=== PATIENT | female | born 1970 | race African-American/Black ===

== ENCOUNTER 2017-05-16 15:50 | Emergency (ER) | payer OTHER ==
[~2017-05-16] VITALS: Ht 157.5 cm; Wt 82.0 kg
[~2017-05-16 15:50] MED LIST: BENADRYL; HYDR-3927; NORVASC; P20 PO; POTASSIUM
[2017-05-16 15:51] VITALS: BP 125/69
[2017-05-16] MEDS ORDERED: LEVOFLOXACIN 250MG TABLET PO ONE (19:00)
== END 2017-05-16 19:15 | disposition home or self-care (01) ==
LOC: ER 16:03
DX: H60.8X3 Other otitis externa, bilateral (principal); H61.003 Unspecified perichondritis of external ear, bilateral; J45.909 Unspecified asthma, uncomplicated; I10 Essential (primary) hypertension; M32.9 Systemic lupus erythematosus, unspecified; R04.0 Epistaxis; Z98.890 Other specified postprocedural states
CPT/HCPCS: 99283

== ENCOUNTER 2017-10-13 19:11 | Emergency (ER) | payer OTHER ==
[~2017-10-13] VITALS: Ht 157.5 cm; Wt 78.0 kg
[2017-10-13] MEDS ORDERED: MORPHINE SULFATE 10 MG/ML CPJ IM ONE (20:00)
[2017-10-13] MEDS ORDERED: ONDANSETRON 4MG ODT PO ONE (20:00)
[2017-10-13] MEDS ORDERED: KETOROLAC 60MG/2ML VIAL IM ONE (23:30)
[2017-10-14 00:05] VITALS: BP 136/87
== END 2017-10-13 23:59 | disposition home or self-care (01) ==
LOC: ER 19:11
DX: M54.2 Cervicalgia (principal); F17.200 Nicotine dependence, unspecified, uncomplicated; M32.9 Systemic lupus erythematosus, unspecified; M48.061 Spinal stenosis, lumbar region without neurogenic claudication; M54.9 Dorsalgia, unspecified; J45.909 Unspecified asthma, uncomplicated; I10 Essential (primary) hypertension; Z79.899 Other long term (current) drug therapy; W01.0XXA Fall on same level from slipping, tripping and stumbling without subsequent striking against object, initial encounter; Y93.89 Activity, other specified; Y92.89 Other specified places as the place of occurrence of the external cause; Y99.8 Other external cause status
CPT/HCPCS: 70450; 72125; 72128; 72131; 96372; 99284; J1885; J2270; Q0162

== ENCOUNTER 2018-03-25 19:52 | Emergency (ER) | payer OTHER ==
[~2018-03-25] VITALS: Ht 157.5 cm; Wt 79.0 kg
[2018-03-25] MEDS ORDERED: KETOROLAC 30MG/ML VIAL IV STA (22:17)
[2018-03-25] MEDS ORDERED: SODIUM CHLORIDE 0.9% 1,000 ML IV ONE (22:17)
[2018-03-25] MEDS ORDERED: MORPHINE SULFATE 4 MG/ML CPJ (NOT FOR IM USE) IV ONE (22:45)
[2018-03-25 22:46] LABS: CLARITY URINE CLEAR (CLEAR); COLOR URINE YELLOW (YELLOW); KETONES URINE NEGATIVE (NEGATIVE); LEUKOCYTE ESTERASE URINE 1+ (NEGATIVE); NITRITE URINE NEGATIVE (NEGATIVE); OCCULT BLOOD URINE NEGATIVE (NEGATIVE); PH URINE 6.5 (4.5-8.0); PROTEIN URINE NEGATIVE (NEGATIVE); SPECIFIC GRAVITY URINE 1.022 (1.005-1.030)
[2018-03-25 22:59] LABS: BASOPHILS % 0.8 % (0.0-2.0); EOSINOPHILS % 1.6 % (0.0-5.0); HEMATOCRIT. 36.2 % (36.0-48.0); HEMOGLOBIN. 12.2 g/dL (12.0-16.0); LYMPHOCYTES % 39.1 % (20.0-50.0); MEAN CORPUSCULAR VOLUME 97.8 fL (81.0-99.0); MEAN PLATELET VOLUME 8.2 fl (7.4-10.4); MONOCYTES % 6.8 % (2.0-8.0); NEUTROPHILS % 51.7 % (40.0-76.0); PLATELET 362 x1000/uL (130-400); RED CELL DISTRIBUTION WIDTH 13.9 % (11.6-14.6)
[2018-03-25 23:03] LABS: CHLORIDE 107 mEq/L (98-107); PROTHROMBIN TIME 9.9 sec (9.1-11.1)
[2018-03-25] MEDS ORDERED: MORPHINE SULFATE 2 MG/ML CPJ (NOT FOR IM USE) IV NR (23:15)
[2018-03-26 00:48] VITALS: BP 100/60
== END 2018-03-26 00:49 | disposition home or self-care (01) ==
LOC: ER 23:32
DX: R10.9 Unspecified abdominal pain (principal); N39.0 Urinary tract infection, site not specified; M79.7 Fibromyalgia; M32.9 Systemic lupus erythematosus, unspecified
CPT/HCPCS: 36415; 71045; 80053; 81003; 81025; 83690; 85025; 85610; 93005; 96374; 99284; J2270; J7030; J1885

== ENCOUNTER 2018-05-30 11:50 | Emergency (ER) | payer OTHER ==
[~2018-05-30] VITALS: Ht 175.3 cm; Wt 79.0 kg
[2018-05-30] MEDS ORDERED: KETOROLAC 30MG/ML VIAL IV STA (12:23)
[2018-05-30] MEDS ORDERED: SODIUM CHLORIDE 0.9% 1,000 ML IV ONE ×2 (12:23→15:45)
[2018-05-30 13:54] LABS: CHLORIDE 104 mEq/L (98-107)
[2018-05-30 15:19] LABS: BASOPHILS % 0.2 % (0.0-2.0); EOSINOPHILS % 0.1 % (0.0-5.0); HEMOGLOBIN. 11.2 g/dL (12.0-16.0); LYMPHOCYTES % 10.3 % (20.0-50.0); MEAN CORPUSCULAR HEMOGLOBIN 32.8 pg (28.0-32.0); MEAN CORPUSCULAR VOLUME 96.9 fL (81.0-99.0); MEAN PLATELET VOLUME 7.5 fl (7.4-10.4); MONOCYTES % 6.6 % (2.0-8.0); NEUTROPHILS % 82.8 % (40.0-76.0); PLATELET 332 x1000/uL (130-400); RED CELL DISTRIBUTION WIDTH 13.9 % (11.6-14.6)
[2018-05-30 18:56] VITALS: BP 124/62
[2018-05-30] MEDS ORDERED: OXYCODONE HCL/ACETAMINOPHEN 5/325MG TABLET PO ONE (19:00)
== END 2018-05-30 15:22 | disposition home or self-care (01) ==
LOC: ER 11:50 → CANBEDREQ 05-31 01:29
DX: J06.9 Acute upper respiratory infection, unspecified (principal); D64.9 Anemia, unspecified; E87.2 Acidosis; F17.200 Nicotine dependence, unspecified, uncomplicated; Z98.890 Other specified postprocedural states; Z91.018 Allergy to other foods
CPT/HCPCS: 36415; 71045; 80053; 83605; 84145; 84484; 85025; 85610; 87804; 93005; 96374; 99284; J1885; J7030

== ENCOUNTER 2018-11-14 03:13 | Emergency (ER) | payer OTHER ==
[~2018-11-14] VITALS: Ht 172.7 cm; Wt 83.0 kg
[2018-11-14] MEDS: KETOROLAC 30MG/ML VIAL IV STA (03:32)
[2018-11-14] MEDS: HYDROCODONE/ACETAMINOPHEN 5/325MG TABLET PO STA (03:58)
[2018-11-14] MEDS: ONDANSETRON 4MG ODT PO STA (03:58)
[2018-11-14 04:04] LABS: BASOPHILS % 0.8 % (0.0-2.0); EOSINOPHILS % 1.4 % (0.0-5.0); HEMATOCRIT. 34.7 % (36.0-48.0); HEMOGLOBIN. 11.8 g/dL (12.0-16.0); MEAN CORPUSCULAR HEMOGLOBIN 33.2 pg (28.0-32.0); MEAN PLATELET VOLUME 7.7 fl (7.4-10.4); NEUTROPHILS % 78.8 % (40.0-76.0); PLATELET 359 x1000/uL (130-400); RED BLOOD CELL COUNT 3.54 mill/uL (4.2-5.4); RED CELL DISTRIBUTION WIDTH 14.6 % (11.6-14.6)
[2018-11-14 04:07] LABS: CHLORIDE 108 mEq/L (98-107)
[2018-11-14 04:12] LABS: ETHANOL BLOOD < 10 mg/dL
[2018-11-14] MEDS: KETOROLAC 60MG/2ML VIAL IM ONE (04:58)
[2018-11-14 05:33] VITALS: BP 138/88
== END 2018-11-14 05:33 | disposition home or self-care (01) ==
LOC: ER 03:13
DX: M79.18 Myalgia, other site (principal); M54.2 Cervicalgia; G89.29 Other chronic pain; Z98.890 Other specified postprocedural states
CPT/HCPCS: 36415; 80053; 80320; 83690; 85025; 96372; 99283; J1885; Q0162; G0480

== ENCOUNTER 2019-03-02 09:11 | Emergency (ER) | payer OTHER ==
[~2019-03-02] VITALS: Ht 160 cm; Wt 79.0 kg
[2019-03-02 09:17] VITALS: BP 161/92
[2019-03-02] MEDS ORDERED: KETOROLAC 30MG/ML VIAL IM ONE (09:45)
== END 2019-03-02 10:57 | disposition home or self-care (01) ==
LOC: ER 10:00
DX: M54.5 Low back pain (principal); I10 Essential (primary) hypertension; E78.00 Pure hypercholesterolemia, unspecified; J44.9 Chronic obstructive pulmonary disease, unspecified; Z98.890 Other specified postprocedural states; F17.210 Nicotine dependence, cigarettes, uncomplicated; Z86.73 Personal history of transient ischemic attack (TIA), and cerebral infarction without residual deficits; V49.9XXA Car occupant (driver) (passenger) injured in unspecified traffic accident, initial encounter; Y93.89 Activity, other specified; Y92.488 Other paved roadways as the place of occurrence of the external cause
CPT/HCPCS: 96372; 99283; J1885

== ENCOUNTER 2019-06-05 10:27 | Inpatient (IN) | payer OTHER ==
[~2019-06-05] VITALS: Ht 157.5 cm; Wt 79.8 kg
[2019-06-05] MEDS ORDERED: ONDANSETRON 4MG ODT PO ONE (15:00)
[2019-06-05] MEDS ORDERED: HYDROCODONE/ACETAMINOPHEN 10/325MG TABLET PO ONE (16:15)
[2019-06-05] MEDS ORDERED: DEXAMETHASONE 10 MG/ML VIAL IV ONE (19:00)
[2019-06-05 20:18] LABS: CHLORIDE 108 mEq/L (98-107)
[2019-06-05 20:34] LABS: BASOPHILS % 0.9 % (0.0-2.0); EOSINOPHILS % 2.2 % (0.0-5.0); HEMOGLOBIN. 13.6 g/dL (12.0-16.0); LYMPHOCYTES % 52.9 % (20.0-50.0); MEAN CORPUSCULAR HEMOGLOBIN 32.9 pg (28.0-32.0); MEAN CORPUSCULAR VOLUME 96.6 fL (81.0-99.0); MONOCYTES % 5.6 % (2.0-8.0); NEUTROPHILS % 38.4 % (40.0-76.0); PLATELET 372 x1000/uL (130-400); RED BLOOD CELL COUNT 4.14 mill/uL (4.2-5.4); RED CELL DISTRIBUTION WIDTH 14.4 % (11.6-14.6)
[2019-06-05] MEDS ORDERED: DIPHENHYDRAMINE 25MG CAPSULE PO ONE (20:45)
[2019-06-05 21:02] LABS: INR 0.9; PROTHROMBIN TIME 10.3 sec (9.6-11.0)
[2019-06-05] MEDS ORDERED: SIMETHICONE 80MG TABLET CHEW PO ONE (21:30)
[2019-06-05 22:45] VITALS: BP 101/72
[2019-06-05] MEDS ORDERED: ZOLP10TA2 MT (23:23)
[2019-06-05] MEDS ORDERED: LACT10SO7 MT (23:23)
[2019-06-05] MEDS ORDERED: GABA-531 MT (23:23)
[2019-06-05] MEDS ORDERED: NICO-645 TP (23:23)
[2019-06-05] MEDS ORDERED: AMLO10TA4 MT (23:23)
[2019-06-06] VITALS: BP 101/72
[2019-06-06 04:00] VITALS: BP 103/61
[2019-06-06] MEDS: HYDROCODONE/ACETAMINOPHEN 10/325MG TABLET PO PRN ×2 (05:29→11:37)
[2019-06-06] MEDS: NICOTINE 14MG PATCH TD SCH (07:15)
[2019-06-06 08:00] VITALS: BP 129/80
[2019-06-06] MEDS: AMLODIPINE 10MG TABLET PO SCH (08:35)
[2019-06-06] MEDS: GABAPENTIN 300MG CAPSULE PO SCH ×3 (08:35→17:00)
[2019-06-06] MEDS: LACTULOSE 20G/30ML UDC PO SCH (08:35)
[2019-06-06 12:00] VITALS: BP 129/72
[2019-06-06] MEDS ORDERED: MORPHINE SULFATE 2 MG/ML CPJ (NOT FOR IM USE) IV PRN (12:15)
[2019-06-06] MEDS ORDERED: NALOXONE HCL 0.4 MG/ML 1ML VIAL IV PRN (15:30)
[2019-06-06] MEDS ORDERED: OXYCODONE HCL/ACETAMINOPHEN 5/325MG TABLET PO PRN (15:30)
[2019-06-06 16:00] VITALS: BP 118/77
[2019-06-06] MEDS ORDERED: IPRATROPIUM/ALBUTEROL 0.5-3(2.5)MG/3ML NEB HHN PRN (16:30)
[2019-06-06] MEDS: DEXAMETHASONE 4MG/ML 1ML VIAL IV SCH (17:03)
[2019-06-06] MEDS: MONTELUKAST SODIUM 10MG TABLET PO SCH (17:03)
[2019-06-06] MEDS: MORPHINE SULFATE 4 MG/ML CPJ (NOT FOR IM USE) IV PRN ×3 (17:59→23:19)
[2019-06-06 20:00] VITALS: BP 119/71
[2019-06-06] MEDS: IPRATROPIUM/ALBUTEROL 0.5-3(2.5)MG/3ML NEB HHN SCH (21:28)
[2019-06-06 23:10] LABS: CLARITY URINE CLEAR (CLEAR); COLOR URINE YELLOW (YELLOW); KETONES URINE NEGATIVE (NEGATIVE); LEUKOCYTE ESTERASE URINE 3+ (NEGATIVE); NITRITE URINE NEGATIVE (NEGATIVE); OCCULT BLOOD URINE NEGATIVE (NEGATIVE); PH URINE 6.5 (4.5-8.0); PROTEIN URINE NEGATIVE (NEGATIVE); SPECIFIC GRAVITY URINE 1.016 (1.005-1.030); UROBILINOGEN URINE 0.2 E.U./dL (0.2-1.0)
[2019-06-07] VITALS: BP 108/64
[2019-06-07] MEDS ORDERED: DEXT 5%/LACTATED RINGERS 1,000 ML IV SCH
[2019-06-07 00:20] LABS: *AMPHETAMINES SCREEN URINE NEGATIVE (NEGATIVE); *BARBITURATES SCREEN URINE NEGATIVE (NEGATIVE); *BENZODIAZEPINES SCREEN URINE NEGATIVE (NEGATIVE); *COCAINE SCREEN URINE NEGATIVE (NEGATIVE); METHADONE URINE SCREEN NEGATIVE (NEGATIVE); OPIATES URINE SCREEN PRESUMTIVE POSITIVE (NEGATIVE)
[2019-06-07 00:21] LABS: CANNABINOID URINE SCREEN NEGATIVE (NEGATIVE); PHENCYCLIDINE URINE SCREEN NEGATIVE (NEGATIVE)
[2019-06-07] MEDS: IPRATROPIUM/ALBUTEROL 0.5-3(2.5)MG/3ML NEB HHN SCH ×4 (01:50→13:45)
[2019-06-07] MEDS: MORPHINE SULFATE 4 MG/ML CPJ (NOT FOR IM USE) IV PRN ×5 (02:33→21:10)
[2019-06-07 04:00] VITALS: BP 99/66
[2019-06-07] MEDS: DEXAMETHASONE 4MG/ML 1ML VIAL IV SCH ×4 (06:00→17:45)
[2019-06-07 08:00] VITALS: BP 105/63
[2019-06-07] MEDS: GABAPENTIN 300MG CAPSULE PO SCH ×3 (08:39→17:47)
[2019-06-07] MEDS: AMLODIPINE 10MG TABLET PO SCH (08:40)
[2019-06-07] MEDS: NICOTINE 14MG PATCH TD SCH (08:40)
[2019-06-07] MEDS: LACTULOSE 20G/30ML UDC PO SCH (08:42)
[2019-06-07] MEDS ORDERED: NICOTINE 14MG PATCH TD SCH (09:00)
[2019-06-07 12:00] VITALS: BP 136/81
[2019-06-07] MEDS ORDERED: POLYETHYLENE GLYCOL 3350 (17GM) 1 DOSE PACK PO SCH (14:30)
[2019-06-07] MEDS ORDERED: ZOLPIDEM TARTRATE 5MG TABLET PO PRN (14:30)
[2019-06-07 16:00] VITALS: BP 117/66
[2019-06-07] MEDS: MONTELUKAST SODIUM 10MG TABLET PO SCH (17:47)
[2019-06-07 20:00] VITALS: BP 106/66
[2019-06-08] VITALS (49 sets, daily range): BP systolic 87–229; BP diastolic 37–229
[2019-06-08] MEDS: MORPHINE SULFATE 4 MG/ML CPJ (NOT FOR IM USE) IV PRN ×6 (01:22→21:48)
[2019-06-08] MEDS: DEXAMETHASONE 4MG/ML 1ML VIAL IV SCH ×5 (06:00→23:47)
[2019-06-08] MEDS ORDERED: THROMBIN (BOVINE) 5000 UNITS/VIAL TOP ONE ×3 (06:31→08:27)
[2019-06-08] MEDS ORDERED: LIDOCAINE HCL/EPINEPHRINE 1%-EPI 1:100,000 20 ML VIAL ONE ×2 (06:31→09:48)
[2019-06-08] MEDS ORDERED: BACITRACIN 50,000 UNITS/VIAL ONE ×2 (06:31→09:47)
[2019-06-08] MEDS ORDERED: BACITRACIN 15GM TUBE TOP ONE (06:31)
[2019-06-08] MEDS ORDERED: FENTANYL CITRATE/PF 50MCG/ML 2ML VIAL ONE ×2 (07:08→08:40)
[2019-06-08] MEDS ORDERED: NEOSTIGMINE METHYLSULFATE 1MG/ML 10 ML VIAL ONE (07:08)
[2019-06-08] MEDS ORDERED: ROCURONIUM BROMIDE 10MG/ML VIAL 5ML IV ONE (07:08)
[2019-06-08] MEDS ORDERED: MIDAZOLAM HCL 2 MG/2 ML VIAL ONE (07:09)
[2019-06-08] MEDS ORDERED: GLYCOPYRROLATE 0.2 MG/ML 2ML VIAL ONE (07:09)
[2019-06-08] MEDS ORDERED: PROPOFOL 200MG/20ML VIAL IV ONE ×2 (07:09→09:06)
[2019-06-08] MEDS ORDERED: ONDANSETRON HCL 4MG/2ML INJ ONE (07:14)
[2019-06-08] MEDS ORDERED: DEXAMETHASONE 4MG/ML 1ML VIAL ONE (07:14)
[2019-06-08] MEDS ORDERED: HYDROMORPHONE HCL/PF 2MG/ML (OR) ONE (07:45)
[2019-06-08] MEDS ORDERED: SEVOFLURANE 250 ML LIQUID INH ONE (08:22)
[2019-06-08] MEDS: NICOTINE 14MG PATCH TD SCH (09:00)
[2019-06-08] MEDS: CEFAZOLIN 1000MG PREMIX 50 ML IV SCH ×2 (10:00→17:46)
[2019-06-08] MEDS: NICARDIPINE 100 MG in SODIUM CHLORIDE 0.9% 60 ML IV PRN (12:26)
[2019-06-08] MEDS: DEXT 5%/LACTATED RINGERS 1,000 ML IV SCH ×2 (12:36→21:30)
[2019-06-08] MEDS: PROPOFOL 10MG/ML 100ML 100 ML IV PRN ×5 (12:52→23:49)
[2019-06-08 13:48] LABS: BG BASE EXCESS -5.7 mmol/L (-2.0-2.0); BG CARBOXYHEMOGLOBIN 0.3 % (0.5-1.5); BG DEOXYHEMOGLOBIN 1.5 % (0.0-5.0); BG FRACTION INSPIRED OXYGEN 50; BG HCO3 ACT 17.7 mmol/L (22.0-26.0); BG METHEMOGLOBIN 0.2 % (0.0-1.5); BG OXYGEN SATURATION 98.5 % (92.0-98.5); BG PCO2 28.5 mmHg (35.0-45.0); BG PH 7.411 (7.350-7.450); BG PO2 130.1 mmHg (75.0-100.0); BG SAMPLE SITE A-LINE; BG TIDAL VOLUME(mL) 500 mL; BG TOTAL HEMOGLOBIN 11.6 g/dL (12.0-18.0); BG VENT MODE VENT - A/C; BG VENT RATE 12 set
[2019-06-08] MEDS ORDERED: CEFAZOLIN SODIUM 1000MG/VIAL IV SCH (14:00)
[2019-06-08] MEDS: IPRATROPIUM/ALBUTEROL 0.5-3(2.5)MG/3ML NEB HHN SCH ×2 (14:58→19:53)
[2019-06-09] VITALS (101 sets, daily range): BP systolic 102–175; BP diastolic 55–173
[2019-06-09] MEDS: IPRATROPIUM/ALBUTEROL 0.5-3(2.5)MG/3ML NEB HHN SCH ×4 (02:07→19:54)
[2019-06-09] MEDS: MORPHINE SULFATE 4 MG/ML CPJ (NOT FOR IM USE) IV PRN ×8 (02:25→21:54)
[2019-06-09] MEDS: PROPOFOL 10MG/ML 100ML 100 ML IV PRN ×2 (02:58→06:32)
[2019-06-09] MEDS: CEFAZOLIN 1000MG PREMIX 50 ML IV SCH ×3 (03:04→17:40)
[2019-06-09] MEDS: NICARDIPINE 100 MG in SODIUM CHLORIDE 0.9% 60 ML IV PRN ×2 (03:29→13:03)
[2019-06-09 05:35] LABS: CHLORIDE 103 mEq/L (98-107)
[2019-06-09] MEDS: DEXAMETHASONE 4MG/ML 1ML VIAL IV SCH ×4 (06:25→23:55)
[2019-06-09 08:45] LABS: HEMATOCRIT. 37.9 % (36.0-48.0); HEMOGLOBIN. 12.9 g/dL (12.0-16.0); MEAN CORPUSCULAR HEMOGLOBIN 32.7 pg (28.0-32.0); MEAN PLATELET VOLUME 7.7 fl (7.4-10.4); PLATELET 332 x1000/uL (130-400); RED BLOOD CELL COUNT 3.94 mill/uL (4.2-5.4); RED CELL DISTRIBUTION WIDTH 14.1 % (11.6-14.6)
[2019-06-09] MEDS: DEXT 5%/LACTATED RINGERS 1,000 ML IV SCH ×2 (08:47→20:42)
[2019-06-09] MEDS: PANTOPRAZOLE SODIUM 40 MG/VIAL IV SCH (08:48)
[2019-06-09] MEDS: NICOTINE 14MG PATCH TD SCH (08:48)
[2019-06-09] MEDS ORDERED: RACEPINEPHRINE 2.25% 0.5ML NEB VIAL HHN PRN (10:30)
[2019-06-09 10:49] LABS: PLATELET ESTIMATE NORMAL
[2019-06-09] MEDS: OXYCODONE HCL/ACETAMINOPHEN 5/325MG TABLET PO PRN ×3 (14:57→23:56)
[2019-06-09 16:13] LABS: HCG SCREEN NEGATIVE
[2019-06-10] VITALS (75 sets, daily range): BP systolic 100–147; BP diastolic 40–98
[2019-06-10] MEDS: CEFAZOLIN 1000MG PREMIX 50 ML IV SCH ×2 (01:10→09:02)
[2019-06-10] MEDS: IPRATROPIUM/ALBUTEROL 0.5-3(2.5)MG/3ML NEB HHN SCH ×4 (01:36→20:54)
[2019-06-10] MEDS: MORPHINE SULFATE 4 MG/ML CPJ (NOT FOR IM USE) IV PRN ×10 (02:08→23:58)
[2019-06-10] MEDS: OXYCODONE HCL/ACETAMINOPHEN 5/325MG TABLET PO PRN ×5 (04:02→22:46)
[2019-06-10] MEDS: DEXAMETHASONE 4MG/ML 1ML VIAL IV SCH ×2 (05:08→12:19)
[2019-06-10] MEDS: DEXT 5%/LACTATED RINGERS 1,000 ML IV SCH ×2 (05:09→13:39)
[2019-06-10] MEDS: PANTOPRAZOLE SODIUM 40 MG/VIAL IV SCH (07:43)
[2019-06-10] MEDS: NICOTINE 14MG PATCH TD SCH (07:43)
[2019-06-10] MEDS: NICARDIPINE 100 MG in SODIUM CHLORIDE 0.9% 60 ML IV PRN (12:41)
[2019-06-10] MEDS: AMLODIPINE 5MG TABLET PO SCH (15:00)
[2019-06-10] MEDS ORDERED: CLONIDINE 0.1MG TABLET PO PRN (15:00)
[2019-06-11] VITALS (15 sets, daily range): BP systolic 94–135; BP diastolic 51–84
[2019-06-11] MEDS: IPRATROPIUM/ALBUTEROL 0.5-3(2.5)MG/3ML NEB HHN SCH ×4 (02:22→19:24)
[2019-06-11] MEDS: MORPHINE SULFATE 4 MG/ML CPJ (NOT FOR IM USE) IV PRN ×7 (03:10→21:41)
[2019-06-11 05:56] LABS: BASOPHILS % 0.3 % (0.0-2.0); HEMATOCRIT. 29.3 % (36.0-48.0); HEMOGLOBIN. 9.9 g/dL (12.0-16.0); MEAN CORPUSCULAR HEMOGLOBIN 32.8 pg (28.0-32.0); MEAN CORPUSCULAR VOLUME 97.2 fL (81.0-99.0); MEAN PLATELET VOLUME 8.9 fl (7.4-10.4); MONOCYTES % 8.4 % (2.0-8.0); NEUTROPHILS % 81.3 % (40.0-76.0); PLATELET 301 x1000/uL (130-400); RED BLOOD CELL COUNT 3.01 mill/uL (4.2-5.4); RED CELL DISTRIBUTION WIDTH 14.1 % (11.6-14.6)
[2019-06-11 06:01] LABS: CHLORIDE 106 mEq/L (98-107)
[2019-06-11 06:22] LABS: HCG SCREEN NEGATIVE
[2019-06-11] MEDS: PANTOPRAZOLE SODIUM 40 MG/VIAL IV SCH (08:30)
[2019-06-11] MEDS: NICOTINE 14MG PATCH TD SCH (08:30)
[2019-06-11] MEDS: AMLODIPINE 5MG TABLET PO SCH (08:33)
[2019-06-11] MEDS: OXYCODONE HCL/ACETAMINOPHEN 5/325MG TABLET PO PRN ×2 (09:47→17:06)
[2019-06-11 14:39] LABS: HEPATITIS B SURFACE ANTIGEN NEGATIVE
[2019-06-11] MEDS: PIPERACILLIN/TAZOBACTAM 3.375 G in DEXT 5% WATER 100 ML IV SCH (18:00)
[2019-06-11] MEDS: FAMOTIDINE 20MG/2ML VIAL IV SCH (21:40)
[2019-06-12] VITALS: BP 148/75
[2019-06-12] MEDS: PIPERACILLIN/TAZOBACTAM 3.375 G in DEXT 5% WATER 100 ML IV SCH ×5 (00:05→23:34)
[2019-06-12] MEDS: MORPHINE SULFATE 4 MG/ML CPJ (NOT FOR IM USE) IV PRN ×8 (00:24→23:18)
[2019-06-12] MEDS: IPRATROPIUM/ALBUTEROL 0.5-3(2.5)MG/3ML NEB HHN SCH ×3 (01:50→22:03)
[2019-06-12 04:00] VITALS: BP 142/77
[2019-06-12 06:55] LABS: BASOPHILS % 0.3 % (0.0-2.0); EOSINOPHILS % 0.6 % (0.0-5.0); HEMATOCRIT. 30.3 % (36.0-48.0); HEMOGLOBIN. 10.4 g/dL (12.0-16.0); LYMPHOCYTES % 29.1 % (20.0-50.0); MEAN CORPUSCULAR HEMOGLOBIN 32.9 pg (28.0-32.0); MEAN CORPUSCULAR VOLUME 95.7 fL (81.0-99.0); MEAN PLATELET VOLUME 8.1 fl (7.4-10.4); MONOCYTES % 13.6 % (2.0-8.0); NEUTROPHILS % 56.4 % (40.0-76.0); PLATELET 309 x1000/uL (130-400); RED BLOOD CELL COUNT 3.17 mill/uL (4.2-5.4); RED CELL DISTRIBUTION WIDTH 13.9 % (11.6-14.6)
[2019-06-12 07:02] LABS: CHLORIDE 104 mEq/L (98-107)
[2019-06-12] MEDS ORDERED: LIDOCAINE HCL 1% 20ML VIAL (Pyxis) INJ ONE (07:17)
[2019-06-12] MEDS ORDERED: SODIUM BICARBONATE 4% (2.4MEQ) 5ML VIAL IV ONE (07:17)
[2019-06-12 08:00] VITALS: BP 149/77
[2019-06-12] MEDS: AMLODIPINE 5MG TABLET PO SCH (10:29)
[2019-06-12] MEDS: NICOTINE 14MG PATCH TD SCH (10:29)
[2019-06-12] MEDS: POTASSIUM CHLORIDE 20MEQ/PACKET PO SCH (10:29)
[2019-06-12] MEDS: FAMOTIDINE 20MG/2ML VIAL IV SCH ×2 (10:29→20:07)
[2019-06-12 12:00] VITALS: BP 140/74
[2019-06-12 16:00] VITALS: BP 127/82
[2019-06-12] MEDS: OXYCODONE HCL/ACETAMINOPHEN 5/325MG TABLET PO PRN (17:59)
[2019-06-12 20:00] VITALS: BP 112/67
[2019-06-13] VITALS: BP 135/72
[2019-06-13] MEDS: IPRATROPIUM/ALBUTEROL 0.5-3(2.5)MG/3ML NEB HHN SCH ×2 (02:24→22:05)
[2019-06-13] MEDS: MORPHINE SULFATE 4 MG/ML CPJ (NOT FOR IM USE) IV PRN ×3 (02:27→08:24)
[2019-06-13 04:00] VITALS: BP 122/86
[2019-06-13] MEDS: PIPERACILLIN/TAZOBACTAM 3.375 G in DEXT 5% WATER 100 ML IV SCH ×3 (06:02→17:58)
[2019-06-13 06:41] LABS: BASOPHILS % 0.3 % (0.0-2.0); EOSINOPHILS % 0.8 % (0.0-5.0); HEMATOCRIT. 30.4 % (36.0-48.0); HEMOGLOBIN. 10.5 g/dL (12.0-16.0); LYMPHOCYTES % 25.5 % (20.0-50.0); MEAN CORPUSCULAR HEMOGLOBIN 32.9 pg (28.0-32.0); MEAN CORPUSCULAR VOLUME 95.5 fL (81.0-99.0); MEAN PLATELET VOLUME 7.5 fl (7.4-10.4); MONOCYTES % 10.1 % (2.0-8.0); NEUTROPHILS % 63.3 % (40.0-76.0); PLATELET 319 x1000/uL (130-400); RED BLOOD CELL COUNT 3.19 mill/uL (4.2-5.4); RED CELL DISTRIBUTION WIDTH 13.8 % (11.6-14.6)
[2019-06-13 07:35] LABS: CHLORIDE 101 mEq/L (98-107)
[2019-06-13 08:00] VITALS: BP 141/77
[2019-06-13] MEDS: FAMOTIDINE 20MG/2ML VIAL IV SCH ×2 (08:23→20:50)
[2019-06-13] MEDS: AMLODIPINE 5MG TABLET PO SCH (08:23)
[2019-06-13] MEDS: POTASSIUM CHLORIDE 20MEQ/PACKET PO SCH (08:23)
[2019-06-13] MEDS: NICOTINE 14MG PATCH TD SCH (08:24)
[2019-06-13] MEDS ORDERED: MORPHINE SULFATE 4 MG/ML CPJ (NOT FOR IM USE) IV PRN (09:00)
[2019-06-13] MEDS: OXYCODONE HCL/ACETAMINOPHEN 5/325MG TABLET PO PRN (10:26)
[2019-06-13 12:00] VITALS: BP 130/76
[2019-06-13] MEDS ORDERED: POTASSIUM CHLORIDE 20MEQ TABLET SR PO NR (14:00)
[2019-06-13 16:00] VITALS: BP 104/66
[2019-06-13] MEDS: MORPHINE SULFATE 2 MG/ML CPJ (NOT FOR IM USE) IV PRN (18:42)
[2019-06-13 20:00] VITALS: BP 102/62
[2019-06-14] VITALS: BP 115/77
[2019-06-14] MEDS: PIPERACILLIN/TAZOBACTAM 3.375 G in DEXT 5% WATER 100 ML IV SCH ×4 (00:40→17:56)
[2019-06-14] MEDS: OXYCODONE HCL/ACETAMINOPHEN 5/325MG TABLET PO PRN ×3 (00:40→19:05)
[2019-06-14] MEDS: MORPHINE SULFATE 2 MG/ML CPJ (NOT FOR IM USE) IV PRN ×3 (02:38→21:27)
[2019-06-14 04:00] VITALS: BP 99/66
[2019-06-14 08:00] VITALS: BP 106/64
[2019-06-14] MEDS: IPRATROPIUM/ALBUTEROL 0.5-3(2.5)MG/3ML NEB HHN SCH ×3 (08:16→21:05)
[2019-06-14] MEDS: FAMOTIDINE 20MG/2ML VIAL IV SCH (08:45)
[2019-06-14] MEDS: AMLODIPINE 5MG TABLET PO SCH (08:46)
[2019-06-14] MEDS: POTASSIUM CHLORIDE 20MEQ/PACKET PO SCH (08:54)
[2019-06-14] MEDS: NICOTINE 14MG PATCH TD SCH (08:54)
[2019-06-14 12:00] VITALS: BP 121/74
[2019-06-14] MEDS ORDERED: OXYC-515 MT (12:06)
[2019-06-14] MEDS ORDERED: MORPHINE SULFATE 2 MG/ML CPJ (NOT FOR IM USE) IV NR (14:00)
[2019-06-14 16:00] VITALS: BP 112/73
[2019-06-14 20:00] VITALS: BP 103/64
[2019-06-14] MEDS: FAMOTIDINE 20MG TABLET PO SCH (21:26)
[2019-06-15] VITALS: BP 155/100
[2019-06-15] MEDS: PIPERACILLIN/TAZOBACTAM 3.375 G in DEXT 5% WATER 100 ML IV SCH ×3 (00:25→12:00)
[2019-06-15] MEDS: OXYCODONE HCL/ACETAMINOPHEN 5/325MG TABLET PO PRN ×3 (01:16→14:50)
[2019-06-15] MEDS: IPRATROPIUM/ALBUTEROL 0.5-3(2.5)MG/3ML NEB HHN SCH ×2 (02:38→14:58)
[2019-06-15 04:00] VITALS: BP 130/70
[2019-06-15 08:00] VITALS: BP 116/73
[2019-06-15] MEDS: POTASSIUM CHLORIDE 20MEQ/PACKET PO SCH (08:02)
[2019-06-15] MEDS: NICOTINE 14MG PATCH TD SCH (08:02)
[2019-06-15] MEDS: FAMOTIDINE 20MG TABLET PO SCH (08:02)
[2019-06-15] MEDS: AMLODIPINE 5MG TABLET PO SCH (08:03)
[2019-06-15] MEDS: MORPHINE SULFATE 2 MG/ML CPJ (NOT FOR IM USE) IV PRN (10:25)
[2019-06-15 12:00] VITALS: BP 95/67
[2019-06-15 15:23] VITALS: BP 65/110
[2019-06-15 16:00] VITALS: BP 120/88
== END 2019-06-15 17:57 | disposition home health service (06) | DRG 321 ==
LOC: ER 10:40 → 6EST 21:22 → EDBEDREQ 21:26 → EDBEDREQTM 21:26 → ENRESERV 21:30 → MICUSO 06-08 12:13 → 6EST 06-11 11:45
PROVIDERS: ADMIT Internal Medicine; ATTEND Internal Medicine
PROC: 00NW0ZZ Release Cervical Spinal Cord, Open Approach (ICD-10-PCS; principal; 2019-06-08)
PROC: 0RG2071 Fusion of 2 or more Cervical Vertebral Joints with Autologous Tissue Substitute, Posterior Approach, Posterior Column, Open Approach (ICD-10-PCS; 2019-06-08)
PROC: 0RG4071 Fusion of Cervicothoracic Vertebral Joint with Autologous Tissue Substitute, Posterior Approach, Posterior Column, Open Approach (ICD-10-PCS; 2019-06-08)
PROC: 4A11X4G Monitoring of Peripheral Nervous Electrical Activity, Intraoperative, External Approach (ICD-10-PCS; 2019-06-08)
PROC: 0RB30ZZ Excision of Cervical Vertebral Disc, Open Approach (ICD-10-PCS; 2019-06-08)
PROC: 02HV33Z Insertion of Infusion Device into Superior Vena Cava, Percutaneous Approach (ICD-10-PCS; 2019-06-08)
PROC: B5181ZA Fluoroscopy of Superior Vena Cava using Low Osmolar Contrast, Guidance (ICD-10-PCS; 2019-06-08)
PROC: B548ZZA Ultrasonography of Superior Vena Cava, Guidance (ICD-10-PCS; 2019-06-08)
PROC: 0RP10AZ Removal of Interbody Fusion Device from Cervical Vertebral Joint, Open Approach (ICD-10-PCS; 2019-06-08)
PROC: 0RG20K0 Fusion of 2 or more Cervical Vertebral Joints with Nonautologous Tissue Substitute, Anterior Approach, Anterior Column, Open Approach (ICD-10-PCS; 2019-06-08)
DX: T84.226A Displacement of internal fixation device of vertebrae, initial encounter (principal); G82.50 Quadriplegia, unspecified; M50.01 Cervical disc disorder with myelopathy, high cervical region; M48.02 Spinal stenosis, cervical region; M32.9 Systemic lupus erythematosus, unspecified; M48.04 Spinal stenosis, thoracic region; M50.11 Cervical disc disorder with radiculopathy, high cervical region; M50.21 Other cervical disc displacement, high cervical region; M72.2 Plantar fascial fibromatosis; D72.820 Lymphocytosis (symptomatic); F17.210 Nicotine dependence, cigarettes, uncomplicated; F41.9 Anxiety disorder, unspecified; M79.7 Fibromyalgia; G89.29 Other chronic pain; J45.909 Unspecified asthma, uncomplicated; Y83.8 Other surgical procedures as the cause of abnormal reaction of the patient, or of later complication, without mention of misadventure at the time of the procedure; T38.0X5A Adverse effect of glucocorticoids and synthetic analogues, initial encounter; M10.9 Gout, unspecified; Z86.73 Personal history of transient ischemic attack (TIA), and cerebral infarction without residual deficits; Z82.49 Family history of ischemic heart disease and other diseases of the circulatory system; Z80.3 Family history of malignant neoplasm of breast; Z79.899 Other long term (current) drug therapy; Y92.89 Other specified places as the place of occurrence of the external cause
CPT/HCPCS: 36415; 36573; 36600; 71045; 72040; 72052; 72141; 76000; 76937; 80048; 80053; 80305; 81003; 82375; 82805; 84145; 84443; 84478; 84703; 85025; 86850; 86900; 86920; 88300; 88304; 88311; 93306; 93970; 94002; 94003; 94640; 95925; 95926; 95928; 95929; 95940; 96374; 97116; 97162; 97166; 97530; 99285; C1713; C1725; C9113; J0690; J1100; J1170; J2250; J2270; J2405; J2543; J2704; J2710; J3010; J3490; J7050; J7060; J7121; L0172; Q0162; Q0163

== ENCOUNTER 2021-11-27 16:39 | Emergency (ER) | payer OTHER ==
[~2021-11-27] VITALS: Ht 157.5 cm; Wt 79.0 kg
[~2021-11-27 16:39] MED LIST changes: +AMLO10TA4 MT; +GABA-532 MT; -HYDR-3927; +LACT10SO7 MT; +NICO-645 TP; +OXYC1TAB12 MT; +ZOLP10TA2 MT
[2021-11-27 19:31] LABS: BASOPHILS % 0.4 % (0.0-2.0); EOSINOPHILS % 0.7 % (0.0-5.0); HEMATOCRIT. 31.9 % (36.0-48.0); HEMOGLOBIN. 10.6 g/dL (12.0-16.0); LYMPHOCYTES % 10.4 % (20.0-50.0); MEAN CORPUSCULAR VOLUME 102.3 fL (81.0-99.0); MEAN PLATELET VOLUME 6.9 fl (7.4-10.4); MONOCYTES % 8.3 % (2.0-8.0); NEUTROPHILS % 80.2 % (40.0-76.0); PLATELET 352 x1000/uL (130-400); RED BLOOD CELL COUNT 3.12 mill/uL (4.2-5.4); RED CELL DISTRIBUTION WIDTH 14.1 % (11.6-14.6)
[2021-11-27 19:39] LABS: CHLORIDE 109 mEq/L (98-107)
[2021-11-27 19:41] LABS: PROTHROMBIN TIME 10.3 sec (9.6-11.0)
[2021-11-27] MEDS ORDERED: MORPHINE SULFATE 4 MG/ML CPJ (NOT FOR IM USE) IV STA (22:17)
[2021-11-27] MEDS ORDERED: SODIUM CHLORIDE 0.9% 1,000 ML IV ONE (22:30)
[2021-11-28] VITALS: BP 115/70
== END 2021-11-28 00:21 | disposition left against medical advice (07) ==
LOC: ER 16:39
DX: R07.89 Other chest pain (principal); D63.0 Anemia in neoplastic disease; M32.9 Systemic lupus erythematosus, unspecified; Z85.3 Personal history of malignant neoplasm of breast; Z86.73 Personal history of transient ischemic attack (TIA), and cerebral infarction without residual deficits; Z20.822 Contact with and (suspected) exposure to COVID-19; Z98.890 Other specified postprocedural states; Z92.21 Personal history of antineoplastic chemotherapy; Z92.3 Personal history of irradiation; Z98.1 Arthrodesis status; Z91.018 Allergy to other foods
CPT/HCPCS: 36415; 71045; 80053; 83690; 83880; 84484; 85025; 85610; 93005; 96361; 96374; 99285; J2270; J7030